=== PATIENT | male | born 1980 | race Caucasian/White ===

== ENCOUNTER 2017-06-24 19:20 | Emergency (ER) | payer BC ==
[~2017-06-24] VITALS: Ht 182.9 cm; Wt 77.1 kg
[~2017-06-24 19:20] MED LIST: ACYCLOVIR800 MG; ATORVASTATIN CA20 MG; BACTRIM DS TAB1 EAC1 ORAL; CIALIS20 MG; EPZICOM TABLET1 EAC1; FLAGYL500 MG ORAL; LEVAQUIN500 MG ORAL; LIPITOR20 MG ORAL; NORCO 5-325 TA1 EACH ORAL; NORCO1 E1 ORAL; VIREAD300 MG; ZOFRAN4 MG ORAL
[2017-06-24 19:45] VITALS: BP 138/76
[2017-06-24] MEDS: Bicillin LA 2,400,000 units IM ONE (20:08)
--- NOTE | 2017-06-24 20:27 | Emergency Room Report ---
History of Present Illness General Chief Complaint: General Complaint Source: Patient Present Illness HPI 36 YO Male presents to the ED c/o lesion on the right palm and sole of the left foot x 2 weeks. pt. received STD testing results showing RPR titer of 1.6. pt. is awaiting further testing results. was told by PCP to go to the ED for Bicillin injection. denies fevers, chills, night sweats, muscle twitches, fatigue, muscle weakness, ST, nausea or vomiting. pt. denies having new sores. pt. denies penile lesions, discharge, dysuria, swollen tender lymph nodes. Denies lesions/rashes elsewhere on the body. Denies new medications or body washes or creams. denies recent travel or hiking. Denies swelling of the lips, tongue , throat or airway. Denies wheezing, or shortness of breath. Denies recent travel, recent illness or ill contacts. denies blisters, oral lesions, or sloughing of the skin. Denies hx of STD's reports recent un-protected intercourse. Pt. reports he sought evaluation at onset of rash. Allergies: Coded Allergies: QUINOLONES (Verified Allergy, Severe, HIVES, SKIN SLOUGHING, 04/25/14) LEVOFLOXACIN (Verified Allergy, Unknown, Rash, 04/25/14) REDNESS AND SKIN EXFOLIATION GENITAL AREA PER PATIENT Patient History Past Medical History: see triage record Past Surgical History: none Pertinent Family History: none Immunizations: UTD Reviewed Nursing Documentation: PMH: Agreed, PSxH: Agreed Nursing Documentation-PMH Past Medical History: No Stated History Hx Cardiac Problems: No Hx Cancer: No Hx Gastrointestinal Problems: Yes Hx Neurological Problems: No Review of Systems All Other Systems: negative except mentioned in HPI Physical Exam Vital Signs Date Time Temp Pulse Resp B/P (MAP) Pulse Ox O2 Delivery O2 Flow Rate FiO2 06/24/17 19:25 97.9 55 17 138/76 100 Room Air Sp02 EP Interpretation: reviewed, normal General Appearance: no apparent distress, alert, GCS 15, non-toxic Head: normocephalic, atraumatic Eyes: bilateral eye normal inspection, bilateral eye PERRL ENT: hearing grossly normal, normal voice, other - no oral lesions Neck: full range of motion, supple/symm/no masses Respiratory: chest non-tender, lungs clear, normal breath sounds, no wheezing, speaking full sentences Cardiovascular #1: regular rate, rhythm, normal capillary refill Gastrointestinal: non tender, soft Rectal: deferred Genitourinary: deferred - Pt deferrs and just wants treatment for positive labs Musculoskeletal: back normal, gait/station normal, normal range of motion, non- tender Neurologic: alert, oriented x3, responsive, motor strength/tone normal, sensory intact, normal gait, speech normal Skin: normal color, warm/dry, well hydrated, rash - discrete well circumscribed lesion to the right palm and left sole of foot. Lymphatic: no adenopathy Medical Decision Making PA Attestation Dr. Howell is my supervising Physician whom patient management has been discussed with. Diagnostic Impression: Primary Impression: Syphilis ER Course 36 YO Male presents to the ED c/o lesion on the right palm and sole of the left foot x 2 weeks. pt. received STD testing results showing RPR titer of 1.6. pt. is awaiting further testing results. was told by PCP to go to the ED for Bicillin injection. denies fevers, chills, night sweats, muscle twitches, fatigue, muscle weakness, ST, nausea or vomiting. pt. denies having new sores. pt. denies penile lesions, discharge, dysuria, swollen tender lymph nodes. Denies lesions/rashes elsewhere on the body. Denies new medications or body washes or creams. denies recent travel or hiking. Denies swelling of the lips, tongue , throat or airway. Denies wheezing, or shortness of breath. Denies recent travel, recent illness or ill contacts. denies blisters, oral lesions, or sloughing of the skin. Denies hx of STD's reports recent un-protected intercourse. Pt. reports he sought evaluation at onset of rash. Ddx considered but are not limited to syphilis, drug eruption, insect bite, RMSF , [place] lesions, meningococcemia, cellulitis just to name a few. Vital signs: are WNL, pt. is afebrile H&PE are most consistent with discrete well circumscribed lesion to the right palm and left sole of foot with a positive RPR titer of 1.6 - no evidence of secondary cellulitic infection at this time. ORDERS: - None at this time ED INTERVENTIONS: -2.4 mu PCN-G IM d/w pt. to follow up with PMD for further lab testing to monitor RPR titer. return to ED with worsening or new symptoms or reactions. DISCHARGE: At this time pt. is stable for d/c to home. Will provide printed patient care instructions, and any necessary prescriptions. Care plan and follow up instructions have been discussed with the patient prior to discharge. Last Vital Signs Date Time Temp Pulse Resp B/P (MAP) Pulse Ox O2 Delivery O2 Flow Rate FiO2 06/24/17 19:45 97.9 55 17 138/76 100 Room Air Disposition: HOME, SELF-CARE Condition: Stable Scripts Bacitracin/Polymyxin B Sulfate (BACITRACIN-POLYMYXIN OINTMENT) 28.35 Gm Oint...g. 1 APPLIC TP BID, #28.3 GM Prov: Luisana Flores 06/24/17 Patient Instructions: Syphilis, Syphilis Test Additional Instructions: Take medications as directed. --Ointment Follow up with a Primary Care Provider in 3-5 days, even if your symptoms have resolved. - You will need follow up laboratory testing performed by your provider. Return sooner to ED if new symptoms occur, or current symptoms become worse. - Please note that this Emergency Department Report was dictated using [email or web address] employee safety and health technology software, occasionally this can lead to erroneous entry secondary to interpretation by the dictation equipment. Luisana Flores Jun 24, 2017 20:27
[2017-06-24] MEDS ORDERED: BACITRACIN-P28.35 GM TP (20:28)
[2017-06-24 20:36] VITALS: BP 138/76
== END 2017-06-24 20:36 | disposition home or self-care (01) ==
LOC: EMR 19:44
DX: A53.9 Syphilis, unspecified (principal); R21 Rash and other nonspecific skin eruption
CPT/HCPCS: 96372; 99283